=== PATIENT | female | born 1995 | race American Indian/Alaskan Native ===

== ENCOUNTER 2017-04-18 20:59 | Emergency (ER) | payer SELFPAY ==
[2017-04-18 21:26] VITALS: BP 120/77
[2017-04-18 22:07] LABS: Hematocrit 39.3 % (30.3-42.9); Hemoglobin 13.1 gm/dl (10.1-14.3); Mean Corpuscular HGB Conc 33 % (30-34); Mean Corpuscular Hemoglobin 29 pg (28-32); Mean Corpuscular Volume 87 fl (79-97); Platelet Count 317 K/mm3 (140-440); Red Blood Count 4.52 M/mm3 (3.65-5.03); Red Cell Distribution Width 14.1 % (13.2-15.2); White Blood Count 4.5 K/mm3 (4.5-11.0)
[2017-04-18 22:25] LABS: Anion Gap 20 mmol/L; BUN/Creatinine Ratio 26.66; Blood Urea Nitrogen 16 mg/dL (7-17); Calcium 9.2 mg/dL (8.4-10.2); Carbon Dioxide 21 mmol/L (22-30); Chloride 100.9 mmol/L (98-107); Glucose 80 mg/dL (65-100); Potassium 3.5 mmol/L (3.6-5.0); Sodium 138 mmol/L (137-145)
[2017-04-18 22:26] LABS: Bilirubin,Urine NEG (Negative); Blood,Urine MOD (Negative); Ketones,Urine TR mg/dL (Negative); Leukocyte Esterase,Urine SM (Negative); Mucus,Urine 3+ /HPF; Nitrite,Urine POS (Negative); Urobilinogen,Urine < 2.0 mg/dL (<2.0)
--- NOTE | 2017-04-22 11:16 | ED Elopement Review ---
ED Pt Elopement review - Results review Lab results: Laboratory Tests 04/18/17 04/18/17 04/18/17 21:56 21:56 22:06 WBC 4.5 RBC 4.52 Hgb 13.1 Hct 39.3 MCV 87 MCH 29 MCHC 33 RDW 14.1 Plt Count 317 Sodium 138 Potassium 3.5 L Chloride 100.9 Carbon Dioxide 21 L Anion Gap 20 BUN 16 Creatinine 0.6 L Estimated GFR > 60 BUN/Creatinine Ratio 26.66 Glucose 80 Calcium 9.2 Urine Color Yellow Urine Turbidity Slightly-cloudy Urine pH 5.0 Ur Specific [place] 1.024 Urine Protein 100 mg/dl Urine Glucose (UA) Neg Urine Ketones Tr Urine Blood Mod Urine Nitrite Pos Ur Reducing Substances Not Reportable Urine Bilirubin Neg Urine Ictotest Not Reportable Urine Urobilinogen < 2.0 Ur Leukocyte Esterase Sm Urine WBC (Auto) 74.0 H Urine RBC (Auto) 4.0 U Epithel Cells (Auto) 2.0 Urine Mucus 3+ Urine HCG, Qual Negative - Call Back decision Pt Call Back Decision: No action required
== END 2017-04-19 03:00 | disposition left against medical advice (07) ==
LOC: ED 20:59
DX: R42 Dizziness and giddiness (principal); R55 Syncope and collapse; Z53.21 Procedure and treatment not carried out due to patient leaving prior to being seen by health care provider
CPT/HCPCS: 36415; 80048; 81001; 81025; 85027

== ENCOUNTER 2017-04-19 10:32 | Emergency (ER) | payer SELFPAY ==
[2017-04-19 11:14] VITALS: BP 117/67
[2017-04-19 11:41] LABS: Hematocrit 40.6 % (30.3-42.9); Hemoglobin 13.4 gm/dl (10.1-14.3); Mean Corpuscular HGB Conc 33 % (30-34); Mean Corpuscular Hemoglobin 29 pg (28-32); Mean Corpuscular Volume 87 fl (79-97); Platelet Count 299 K/mm3 (140-440); Red Blood Count 4.69 M/mm3 (3.65-5.03); Red Cell Distribution Width 14.6 % (13.2-15.2); White Blood Count 3.7 K/mm3 (4.5-11.0)
[2017-04-19 11:58] LABS: Anion Gap 20 mmol/L; BUN/Creatinine Ratio 22.85; Blood Urea Nitrogen 16 mg/dL (7-17); Calcium 9.3 mg/dL (8.4-10.2); Carbon Dioxide 21 mmol/L (22-30); Chloride 103.1 mmol/L (98-107); Glucose 84 mg/dL (65-100); Potassium 3.9 mmol/L (3.6-5.0); Sodium 140 mmol/L (137-145)
--- NOTE | 2017-04-19 13:11 | Cat Scan Report ---
CT HEAD WITHOUT CONTRAST INDICATION: Dizziness. COMPARISON: None similar. FINDINGS: Noncontrast head CT demonstrates normal ventricles and sulci without acute or recent infarct, hemorrhage, mass effect or midline shift. No abnormal extra-axial fluid collections. Posterior fossa structures and basilar cisterns appear within normal limits. Symmetric eye globes. Clear paranasal sinuses and mastoid air cells. Intact calvarium. Normal overlying scalp soft tissues. Few radiopaque dental material incidentally noted. CONCLUSION: No acute intracranial CT abnormality, as described. Thank you for the opportunity to participate in this patient's care.
[2017-04-19 13:13] LABS: Bacteria,Urine 2+ /HPF (Negative); Bilirubin,Urine NEG (Negative); Blood,Urine SM (Negative); Ketones,Urine 20 mg/dL (Negative); Leukocyte Esterase,Urine NEG (Negative); Mucus,Urine 3+ /HPF; Nitrite,Urine NEG (Negative); Urobilinogen,Urine < 2.0 mg/dL (<2.0)
[2017-04-19 13:14] LABS: Protein,Urine >500 mg/dL (Negative)
[2017-04-19 15:22] LABS: Urine Drugs of Abuse Note Disclamer
[2017-04-19] MEDS ORDERED: TYLENOL #3 PO ONE (17:37)
--- NOTE | 2017-04-19 18:03 | Emergency Department Report ---
Entered by FLAVIO BLOUNT, acting as scribe for MAVERICK VELOZ PA. <MAVERICK VELOZ - Last Filed: 04/19/17 17:33> ED Dizziness HPI - General Chief Complaint: Dizziness Stated Complaint: DIZZINESS/ WEAK /POSS PASSED OUT Time Seen by Provider: 04/19/17 16:30 Source: patient, family Mode of arrival: Ambulatory Limitations: No Limitations - History of Present Illness Initial Comments: 21 y/o female with a PMHx of asthma, migraines, and heart murmur presents to the ED c/o dizziness that began 2 days ago. Patient states she experienced a almost fell out at work. Patient states the onset of symptoms began after having food poisoning after eating [employer]. Associated abdominal pain, but she denies dysuria, urgency, and frequency. Rates abdominal pain an 8/10 in severity , which she describes as sharp in quality. LMP 04/16/2017. NKDA. She denies any urinary burning and frequency urgency. Denies any nausea or vomiting. Denies any fever or chills. Patient denies any headache, head injury or visual difficulties. Patient also denies any chest pain or shortness of breath. Denies any numbness or tingling to extremities. MD Complaint: dizziness, near syncope Onset/Timin -: days(s) Timing: sudden onset Description: lightheadedness, near-syncope History of Same: No History of Trauma: No Severity: severe (8/10 abdominal pain) Improves With: nothing Worsens With: nothing Associated Symptoms: denies other symptoms, syncope, other (abdominal pain). denies: chest pain, confusion, cough, fever/chills, rash, seizure, shortness of breath, weakness - Related Data Home Medications Medication Instructions Recorded Confirmed Last Taken Albuterol Sulfate [Albuterol 0.63%] 0.63 mg IH TID PRN 12/28/13 12/28/13 07:00 Fluticasone Propionate [Flovent 1 puff IH BID 12/28/13 12/28/13 12/28/13 07:00 Diskus] Topiramate [Topamax] 25 mg PO BID PRN 12/28/13 12/28/13 12/27/13 20:00 Previous Rx's Medication Instructions Recorded Last Taken Type Acetamin/Codeine 120-12Mg/5 ml 5 ml PO TID PRN #120 oz 12/29/13 Unknown Rx [Tylenol/Codeine] Nitrofurantoin Swain/M-Cryst 100 mg PO Q12HR #14 capsule 04/19/17 Unknown Rx [Macrobid CAP] Allergies Allergy/AdvReac Type Severity Reaction Status Date / Time banana Allergy Swelling Verified 04/18/17 21:27 insect venom Allergy Swelling Verified 04/18/17 21:27 red dye Allergy Vomiting Verified 12/28/13 21:39 ED Review of Systems Comment: All other systems reviewed and negative Constitutional: denies: chills, fever Respiratory: denies: cough, orthopnea, shortness of breath, SOB with exertion, SOB at rest, stridor, wheezing Cardiovascular: syncope. denies: chest pain, palpitations, edema Gastrointestinal: abdominal pain. denies: nausea, vomiting Genitourinary: denies: urgency, dysuria, frequency Musculoskeletal: denies: back pain, joint swelling, arthralgia, myalgia Skin: denies: rash, lesions Neurological: denies: headache, weakness, numbness, paresthesias, confusion, abnormal gait, vertigo ED Past Medical Hx - Past Medical History Previous Medical History?: Yes Hx Headaches / Migraines: Yes Hx Asthma: Yes Additional medical history: heart murmer - Surgical History Past Surgical History?: No - Family History Family history: no significant - Social History Smoking Status: Never Smoker Substance Use Type: None - Medications Home Medications: Home Medications Medication Instructions Recorded Confirmed Last Taken Type Albuterol Sulfate [Albuterol 0.63%] 0.63 mg IH TID PRN 12/28/13 12/28/13 07:00 History Fluticasone Propionate [Flovent 1 puff IH BID 12/28/13 12/28/13 12/28/13 07:00 History Diskus] Topiramate [Topamax] 25 mg PO BID PRN 12/28/13 12/28/13 12/27/13 20:00 History Acetamin/Codeine 120-12Mg/5 ml 5 ml PO TID PRN #120 oz 12/29/13 Unknown Rx [Tylenol/Codeine] Nitrofurantoin Swain/M-Cryst 100 mg PO Q12HR #14 capsule 04/19/17 Unknown Rx [Macrobid CAP] ED Physical Exam - General Limitations: No Limitations General appearance: alert, in no apparent distress - Head Head exam: Present: atraumatic, normocephalic, normal inspection - Eye Eye exam: Present: normal appearance, PERRL, EOMI. Absent: conjunctival injection, nystagmus, periorbital swelling, periorbital tenderness Pupils: Present: normal accommodation - ENT ENT exam: Present: normal exam, normal orophraynx, mucous membranes moist, TM's normal bilaterally, normal external ear exam - Neck Neck exam: Present: normal inspection, full ROM. Absent: tenderness, meningismus, lymphadenopathy - Expanded Neck Exam Expanded Neck exam: Absent: tenderness, midline deformity, anterior neck swelling, thyroid mass, carotid bruit, tracheal deviation - Respiratory Respiratory exam: Present: normal lung sounds bilaterally. Absent: respiratory distress, wheezes, rales, rhonchi, stridor, accessory muscle use, decreased breath sounds - Cardiovascular Cardiovascular Exam: Present: regular rate, normal rhythm, normal heart sounds - GI/Abdominal GI/Abdominal exam: Present: soft, tenderness, normal bowel sounds. Absent: distended, guarding, rebound, rigid, organomegaly, mass, bruit, pulsatile mass - Extremities Exam Extremities exam: Present: normal inspection, full ROM, normal capillary refill. Absent: tenderness, pedal edema, joint swelling, calf tenderness - Back Exam Back exam: Present: normal inspection, full ROM - Neurological Exam Neurological exam: Present: alert, oriented X3, normal gait, reflexes normal. Absent: motor sensory deficit - Expanded Neurological Exam Expanded Neurological exam: Absent: innattentive, memory loss-remote event, memory loss- recent event, ataxia, receptive aphasia, expressive aphasia, total aphasia, tremor, protecting the airway Patient oriented to: Present: person, place, time Speech: Present: fluid speech (normal tone of speech) Cranial nerves: EOM's Intact: Normal, Gag Reflex: Normal, Nystagmus: Normal, Facial Sensation: Normal, Facial Palsy with Forehead Movement: Normal, Facial Palsy without Forehead Movement: Normal Cerebellar function: Romberg: Normal Upper motor neuron: Pronator Drift: Normal, Sensory Extinction: Normal Sensory exam: Upper Extremity Light Touch: Normal, Upper Extremity Pin Prick: Normal, Upper Extremity Temperature: Normal, UE 2 Point Discrimination: Normal, Lower Extremity Light Touch: Normal, Lower Extremity Pin Prick: Normal, Lower Extremity Temperature: Normal, LE 2 Point Discrimination: Normal Motor strength exam: RUE: 5, LUE: 5, RLE: 5, LLE: 5 DTR: bicep (R): 2+, bicep (L): 2+, tricep (R): 2+, tricep (L): 2+, knee (R): 2+ , knee (L): 2+, ankle (R): 2+, ankle (L): 2+ Best Eye Response (Lincoln): (4) open spontaneously Best Motor Response (Lincoln): (6) obeys commands Best Verbal Response (Brent): (5) oriented [place] Total: 15 - Psychiatric Psychiatric exam: Present: normal affect, normal mood - Skin Skin exam: Present: warm, dry, intact, normal color. Absent: rash ED Course Vital Signs 04/19/17 11:07 Temperature 97.7 F Pulse Rate 71 Respiratory 16 Rate Blood Pressure 117/67 O2 Sat by Pulse 100 Oximetry - Reevaluation(s) Reevaluation #1: 04/19/17 17:40 Given Tylenol 3 2 tablets in the emergency room for abdominal pain. ED Medical Decision Making - Lab Data Result diagrams: 04/19/17 11:19 04/19/17 11:19 Lab Results 04/19/17 04/19/17 04/19/17 Range/Units 11:19 11:19 11:19 WBC 3.7 L (4.5-11.0) K/mm3 RBC 4.69 (3.65-5.03) M/mm3 Hgb 13.4 (10.1-14.3) gm/dl Hct 40.6 (30.3-42.9) % MCV 87 (79-97) fl MCH 29 (28-32) pg MCHC 33 (30-34) % RDW 14.6 (13.2-15.2) % Plt Count 299 (140-440) K/mm3 Sodium 140 (137-145) mmol/L Potassium 3.9 (3.6-5.0) mmol/L Chloride 103.1 (98-107) mmol/L Carbon Dioxide 21 L (22-30) mmol/L Anion Gap 20 mmol/L BUN 16 (7-17) mg/dL Creatinine 0.7 (0.7-1.2) mg/dL Estimated GFR > 60 ml/min BUN/Creatinine Ratio 22.85 % Glucose 84 (65-100) mg/dL Calcium 9.3 (8.4-10.2) mg/dL Troponin T < 0.010 (0.00-0.029) ng/mL TSH (0.270-4.200) mlU/mL Free T4 (0.76-1.46) ng/dL HCG, Qual (Negative) Urine Color (Yellow) Urine Turbidity (Clear) Urine pH (5.0-7.0) Ur Specific [place] (1.003-1.030) Urine Protein (Negative) mg/dL Urine Glucose (UA) (Negative) mg/dL Urine Ketones (Negative) mg/dL Urine Blood (Negative) Urine Nitrite (Negative) Urine Bilirubin (Negative) Urine Urobilinogen (<2.0) mg/dL Ur Leukocyte Esterase (Negative) Urine WBC (Auto) (0.0-6.0) /HPF Urine RBC (Auto) (0.0-6.0) /HPF U Epithel Cells (Auto) (0-13.0) /HPF Urine Bacteria (Auto) (Negative) /HPF Urine Mucus /HPF Urine Opiates Screen Urine Methadone Screen Ur Barbiturates Screen Ur Phencyclidine Scrn Ur Amphetamines Screen U Benzodiazepines Scrn Urine Cocaine Screen U Marijuana (THC) Screen Drugs of Abuse Note 04/19/17 04/19/17 04/19/17 Range/Units 11:27 11:27 12:49 WBC (4.5-11.0) K/mm3 RBC (3.65-5.03) M/mm3 Hgb (10.1-14.3) gm/dl Hct (30.3-42.9) % MCV (79-97) fl MCH (28-32) pg MCHC (30-34) % RDW (13.2-15.2) % Plt Count (140-440) K/mm3 Sodium (137-145) mmol/L Potassium (3.6-5.0) mmol/L Chloride (98-107) mmol/L Carbon Dioxide (22-30) mmol/L Anion Gap mmol/L BUN (7-17) mg/dL Creatinine (0.7-1.2) mg/dL Estimated GFR ml/min BUN/Creatinine Ratio % Glucose (65-100) mg/dL Calcium (8.4-10.2) mg/dL Troponin T (0.00-0.029) ng/mL TSH 2.960 (0.270-4.200) mlU/mL Free T4 1.52 H (0.76-1.46) ng/dL HCG, Qual Negative (Negative) Urine Color Yellow (Yellow) Urine Turbidity Slightly-cloudy (Clear) Urine pH 6.0 (5.0-7.0) Ur Specific [place] 1.025 (1.003-1.030) Urine Protein >500 (Negative) mg/dL Urine Glucose (UA) 50 (Negative) mg/dL Urine Ketones 20 (Negative) mg/dL Urine Blood Sm (Negative) Urine Nitrite Neg (Negative) Urine Bilirubin Neg (Negative) Urine Urobilinogen < 2.0 (<2.0) mg/dL Ur Leukocyte Esterase Neg (Negative) Urine WBC (Auto) 50.0 H (0.0-6.0) /HPF Urine RBC (Auto) 10.0 (0.0-6.0) /HPF U Epithel Cells (Auto) 3.0 (0-13.0) /HPF Urine Bacteria (Auto) 2+ (Negative) /HPF Urine Mucus 3+ /HPF Urine Opiates Screen Urine Methadone Screen Ur Barbiturates Screen Ur Phencyclidine Scrn Ur Amphetamines Screen U Benzodiazepines Scrn Urine Cocaine Screen U Marijuana (THC) Screen Drugs of Abuse Note 04/19/17 Range/Units 12:49 WBC (4.5-11.0) K/mm3 RBC (3.65-5.03) M/mm3 Hgb (10.1-14.3) gm/dl Hct (30.3-42.9) % MCV (79-97) fl MCH (28-32) pg MCHC (30-34) % RDW (13.2-15.2) % Plt Count (140-440) K/mm3 Sodium (137-145) mmol/L Potassium (3.6-5.0) mmol/L Chloride (98-107) mmol/L Carbon Dioxide (22-30) mmol/L Anion Gap mmol/L BUN (7-17) mg/dL Creatinine (0.7-1.2) mg/dL Estimated GFR ml/min BUN/Creatinine Ratio % Glucose (65-100) mg/dL Calcium (8.4-10.2) mg/dL Troponin T (0.00-0.029) ng/mL TSH (0.270-4.200) mlU/mL Free T4 (0.76-1.46) ng/dL HCG, Qual (Negative) Urine Color (Yellow) Urine Turbidity (Clear) Urine pH (5.0-7.0) Ur Specific [place] (1.003-1.030) Urine Protein (Negative) mg/dL Urine Glucose (UA) (Negative) mg/dL Urine Ketones (Negative) mg/dL Urine Blood (Negative) Urine Nitrite (Negative) Urine Bilirubin (Negative) Urine Urobilinogen (<2.0) mg/dL Ur Leukocyte Esterase (Negative) Urine WBC (Auto) (0.0-6.0) /HPF Urine RBC (Auto) (0.0-6.0) /HPF U Epithel Cells (Auto) (0-13.0) /HPF Urine Bacteria (Auto) (Negative) /HPF Urine Mucus /HPF Urine Opiates Screen Presumptive negative Urine Methadone Screen Presumptive negative Ur Barbiturates Screen Presumptive negative Ur Phencyclidine Scrn Presumptive negative Ur Amphetamines Screen Presumptive negative U Benzodiazepines Scrn Presumptive negative Urine Cocaine Screen Presumptive negative U Marijuana (THC) Screen Presumptive negative Drugs of Abuse Note Disclamer Urine culture pending. - EKG Data -: EKG Interpreted by Me (attending physician in the ED) EKG shows normal: sinus rhythm (sinus rhythm with sinus arrhythmia at 71 bpm) Rate: normal - EKG Data Interpretation: no acute changes - Radiology Data Radiology results: report reviewed, image reviewed interpreted by me: Chest x-ray revealed no acute findings. CT scan of the head revealed no acute findings - Medical Decision Making ED course: Patient here complaining of dizziness and lightheadedness, abdominal pain and on for 2 days. She says her abdominal pain for me in the 90s. Have any head injury and her physical findings and no neurological abnormality, within normal limits, chemistry revealed no , CO2 mildly decreased at 21 and normal is 22-30. Patient with normal TSH and free T4 1 52 beats a mildly elevated and suggestive hyperthyroidism. Patient also had greater than 500 glucose in the urine, 20 ketones and positive for protein at 50. She has a history of asthma, migraine headache and heart murmur as a child. I collaborated with Dr. Levy on patient presentation, clinical findings, creatinine and diagnostic along the lab findings. Patient also has urinary tract infection and has blood in her urine and she says she is on her period. Urine culture sent. Urine drug screen is negative. All labs and diagnostics was discussed with patient and family is understanding. Dr. Levy agrees the patient should follow up outpatient with public transit specialist for protein and glucose and urine, positive ketones and tolerating oral liquids well in ED. Pharmacovigilance Specialist for near syncope. patient also follow up with jute bag sewer regarding elevation and free T4 with normal TSH. I discussed with patient that she will need to follow up outpatient and if she doesn't have a primary care physician she needs to follow-up with [facility]. 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 3 2 tablets in the emergency room for abdominal pain. Discharged home with her family with prescription for Macrobid ED Disposition Disposition: DC-01 TO HOME OR SELFCARE Is pt being admited?: No Does the pt Need Aspirin: No Condition: Stable Instructions: Dehydration (ED), Urinary Tract Infection in Women (ED), Hyperthyroidism (ED), Abdominal Pain (ED), Near Syncope (ED) Additional Instructions: You have glucose and protein in the urine and she will need to follow up with public transit specialist for further evaluation. Please drink plenty of urine is showing mild dehydration. Follow-up with manager business systems regarding a syncopal episode. Follow-up with jute bag sewer for elevated T4 normal TSH which means to have some kind of thyroid abnormality probably elevated thyroid and will need to be evaluated by specialists. Follow-up with [facility] for primary care visits in 2 days Prescriptions: Nitrofurantoin Swain/M-Cryst [Macrobid CAP] 100 mg PO Q12HR #14 capsule Referrals: PRIMARY CARE, [Primary Care Provider] - 04/21/17 OSORIO-VON ROSARIO MD [Staff Physician] - 04/21/17 JOEY WHITE MD [Staff Physician] - 04/24/17 [facility] [Outside] - 2-3 Days Kana Mary jute bag sewer [Other] - 04/21/17 (Power Superintendent that can help with Thyroid problem) Forms: Accompanied Note, Work/School Release Form(ED), Work/School Release Form <LENA LEVY P - Last Filed: 04/19/17 18:35> ED Medical Decision Making - Lab Data Result diagrams: 04/19/17 11:19 04/19/17 11:19 This documentation as recorded by the JOSE ALEJANDRO tavares JASMINE,accurately reflects the service I personally performed and the decisions made by me,MAVERICK VELOZ PA.
--- NOTE | 2017-04-20 07:47 | XRay Report ---
ROUTINE CHEST, TWO VIEWS: HISTORY: Syncope. The trachea, heart, mediastinal contour, lung house and bony thorax are unremarkable. IMPRESSION: Unremarkable chest x-ray.
== END 2017-04-19 18:23 | disposition home or self-care (01) ==
LOC: ED 10:32
DX: R42 Dizziness and giddiness (principal); R10.9 Unspecified abdominal pain; G43.909 Migraine, unspecified, not intractable, without status migrainosus; J45.909 Unspecified asthma, uncomplicated; Z91.018 Allergy to other foods; Z91.048 Other nonmedicinal substance allergy status; Z91.038 Other insect allergy status; Z79.899 Other long term (current) drug therapy
CPT/HCPCS: 36415; 70450; 71020; 80048; 80307; 81001; 84439; 84443; 84484; 84703; 85027; 93005; 93010; 99284